=== PATIENT | female | born 1945 | race Caucasian/White ===

== ENCOUNTER → 2017-08-07 | Outpatient (CLI) | payer MEDICARE, OTHER ==
[~2017-08-07] MED LIST: ACE500 PO; ALBU8.5H IH; BENZ100C4 PO; CALC-649 PO; CYCL10TA29 PO; DULO30CA6 PEG; Diabetes Supplies; FLU180SY9 IM; GAB300 PO; GABA-549 PO; HYD200 PO; HYDR-385 PO; IBUP200C71 PO; LEVO-85 PO; OSE75 PO; PNEI IJ; PNEU0.5D3 IM; PRED20TA6 PO; RANI-315 PO
== END ==
LOC: LAB 12:12
PROVIDERS: ATTEND Nurse Practitioner Family
DX: E11.9 Type 2 diabetes mellitus without complications (principal)
CPT/HCPCS: 36415; 83036

== ENCOUNTER 2017-09-05 00:32 | Day surgery (SDC) | payer MEDICARE, OTHER ==
[~2017-09-05] VITALS: Ht 165.1 cm; Wt 69.4 kg
[~2017-09-05 00:32] MED LIST changes: +CHOL10005 PO
[2017-09-05] MEDS ORDERED: PROPOFOL EMUL(*) 10MG/ML 20 ML 40 ML ONE (09:14)
[2017-09-05] MEDS ORDERED: LIDOCAINE MPF 1% 5 ML VIAL ONE (09:14)
[2017-09-05 11:14] VITALS: BP 143/89
[2017-09-05] MEDS ORDERED: NORMOSOL R SOLN(*) 1000 ML BAG 1,000 ML IV PRN (12:30)
[2017-09-05] MEDS ORDERED: LIDOCAINE/SOD BICARB 8.4% SYR ID ONE (12:30)
[2017-09-05 13:29] VITALS: BP 96/54
[2017-09-05 14:00] VITALS: BP 100/59
[2017-09-05 14:04] VITALS: BP 111/77
[2017-09-05 14:06] VITALS: BP 119/79
== END 2017-09-05 14:25 | disposition home or self-care (01) ==
LOC: OR 00:32
PROVIDERS: ATTEND Internal Medicine Gastroenterology
DX: Z12.11 Encounter for screening for malignant neoplasm of colon (principal); D12.3 Benign neoplasm of transverse colon; K64.9 Unspecified hemorrhoids; K57.30 Diverticulosis of large intestine without perforation or abscess without bleeding
CPT/HCPCS: 00811; 45385; 88305; J2001; J2704

== ENCOUNTER → 2017-10-17 | Outpatient (CLI) | payer MEDICARE, OTHER | LOC: AUD 08:45 | PROVIDERS: ATTEND Nurse Practitioner Family | DX: H90.3 Sensorineural hearing loss, bilateral (principal) | CPT/HCPCS: 92557; 92570 ==

== ENCOUNTER → 2017-12-04 | Outpatient (CLI) | payer MEDICARE, OTHER ==
[~2017-12-04] MED LIST changes: +IBUP-136 PO; -IBUP200C71 PO; +RANI-366 PO
== END ==
LOC: LAB 08:36
PROVIDERS: ATTEND Otolaryngology
DX: H90.5 Unspecified sensorineural hearing loss (principal)
CPT/HCPCS: 36415; 82565

== ENCOUNTER → 2017-12-05 | Outpatient (CLI) | payer MEDICARE, OTHER ==
[~2017-12-05] MED LIST changes: +GADOBENATE 529MG/1ML 15ML VIAL IVP ONE
--- NOTE | 2017-12-05 14:09 | RADIOLOGY IMAGING REPORT ---
[place] [facility] [place] Didi Orozco : 1945 MR: [id number] V: [id number] EXAM DATE: ORDERING PHYSICIAN: ALFREDO PIERRE TECHNOLOGIST: Location[place] [facility] [place] Patient: Didi Orozco : 1945 Visit/Account:[id number] Date of Sevice: 12/05/2017 SELLA IAC W W/O CONTRAST Comparisons: None. Additional pertinent history: Asymmetric sensorineural hearing loss, left-sided TECHNIQUE: Multiplanar, multisequence brain MRI was performed with and without gadolinium contrast. Dedicated thin section imaging was performed through the internal auditory canals with axial and joao nal imaging. CONTRAST: 15 ml of MultiHance. FINDINGS: Sagittal midline structures and craniocervical junction: Negative. Midline shift: None. Ventricles: Negative. Brain parenchyma: Diffusion weighted imaging: Negative. Gradient sequence: Not performed T2 weighted FLAIR images: Scattered foci of abnormal increased T2 signal within the periventricular and subcortical white matter, noncystic but likely representing small vessel ischemic change on a ch ronic basis. Dedicated imaging through the internal auditory canals: Seventh and eighth cranial nerves: Negative. Semicircular canals/cochlea: Negative Fifth cranial nerves/Meckel's caves: Negative Cerebellopontine angles: Negative Pathologic enhancement: Negative Extra-axial spaces: Negative. Dural venous sinuses and major arterial flow voids: Negative. Intracranial enhancement: Negative.. Mastoid air cells and paranasal sinuses: Patchy opacification of the right mastoid air cells. Otherw ise negative Surrounding soft tissues and orbits: Negative. Impression: 1. Age related changes as described above. 2. No evidence of acute intracranial pathology. 3. Normal imaging of the internal auditory canals. Report Dictated By: Tre Mcclain MD at 12/05/2017 2:02 PM Report E-Signed By: Tre Mcclain MD at 12/05/2017 2:06 PM WSN:[id number]
== END ==
LOC: MRI 02:26
PROVIDERS: ATTEND Otolaryngology
DX: R90.82 White matter disease, unspecified (principal)
CPT/HCPCS: 70553; A9577

== ENCOUNTER → 2018-07-15 | Outpatient (CLI) | payer OTHER, MEDICARE ==
[~2018-07-15] MED LIST changes: +CLOB15OI16 TP; +FLU60VIA41 IM; -GADOBENATE 529MG/1ML 15ML VIAL IVP ONE
== END ==
LOC: AUD 10:55
PROVIDERS: ATTEND Otolaryngology
DX: H90.42 Sensorineural hearing loss, unilateral, left ear, with unrestricted hearing on the contralateral side (principal)
CPT/HCPCS: 92552

== ENCOUNTER → 2018-07-21 | Outpatient (CLI) | payer MEDICARE, OTHER ==
--- NOTE | 2018-07-21 17:26 | RADIOLOGY IMAGING REPORT ---
FACILITY: [facility] PATIENT NAME: Didi Orozco : 1945 MR: [id number] V: [id number] EXAM DATE: ORDERING PHYSICIAN: ALFREDO PIERRE TECHNOLOGIST: Location: [facility] - [place] Patient: Didi Orozco : 1945 Visit/Account:[id number] Date of Sevice: 07/21/2018 CAROTID HISTORY: left pulsatile tinnitis Comparison:None available Findings: On the right : Peak systolic velocity of the right common carotid artery is 88 cm/s Peak systolic velocity of the right internal carotid artery is 70 cm/s There is normal antegrade flow of the right vertebral artery. The right ICA/CCA ratio is 1.04 Minimal atherosclerotic disease within the lateral aspect of the carotid bulb. On the left: Peak systolic velocity of the left common carotid artery is 12 cm/s Peak systolic velocity of the left internal carotid artery is 71 cm/s There is normal antegrade flow of the left vertebral artery. The left ICA/CCA ratio is 0.86 Minimal plaque in the proximal left internal carotid IMPRESSION: 1. No hemodynamically significant stenosis of the bilateral common carotid arteries and bilateral int ernal carotid arteries as above. Velocity criteria are extrapolated from diameter data as defined by the Society of Radiologists in Ul trasound Consensus Conference Radiology 2003:229:340-346 Report Dictated By: Juan Pablo Domínguez MD at 07/21/2018 5:17 PM Report E-Signed By: Juan Pablo Domínguez MD at 07/21/2018 5:22 PM WSN:[email or web address]
== END ==
LOC: US 01:29
PROVIDERS: ATTEND Otolaryngology
DX: H93.12 Tinnitus, left ear (principal)
CPT/HCPCS: 93880